=== PATIENT | male | born 1930 | race Caucasian/White ===

== ENCOUNTER 2017-04-18 15:13 | Inpatient (IN) | payer MEDICARE, BC ==
[~2017-04-18 15:13] MED LIST: Ciprofloxacin in D5W 400 MG in Premix Bag 1 BAG IV SCH; Lactated Ringers 1,000 ML IV SCH
[2017-04-18] MEDS: Lactated Ringers 1,000 ML IV SCH (15:56)
[2017-04-18] MEDS: Ciprofloxacin in D5W 400 MG in Premix Bag 1 BAG IV SCH ×6 (16:37→16:41)
[2017-04-18] MEDS ORDERED: Albuterol HFA 18 Gm Inhaler INH PRN (18:19)
[2017-04-18 18:56] LABS: CHLORIDE,CL 105 mmol/L (98-110); SODIUM,NA 137 mmol/L (136-146)
[2017-04-18] MEDS: atorvaSTATin 20 MG Tab PO SCH (20:05)
[2017-04-18] MEDS: Carvedilol 3.125 MG Tab PO SCH (20:18)
[2017-04-18] MEDS: Isosorbide Dinitrate 10 MG Tab PO SCH (20:18)
[2017-04-18] MEDS: SYMBICORT 160-4.5 **OWN MED INH SCH (20:54)
[2017-04-18] MEDS: Ipratropium 12.9 GM Inhaler INH SCH (21:00)
[2017-04-19] MEDS: Ciprofloxacin in D5W 400 MG in Premix Bag 1 BAG IV SCH ×4 (03:37→16:35)
[2017-04-19] MEDS: Albuterol 8 GM Inhaler INH PRN ×3 (04:41→18:04)
[2017-04-19] MEDS: Isosorbide Dinitrate 10 MG Tab PO SCH ×4 (06:09→20:41)
[2017-04-19] MEDS: Carvedilol 3.125 MG Tab PO SCH ×4 (06:10→20:40)
[2017-04-19] MEDS ORDERED: Omeprazole 20 MG Cap.CR PO ONE (06:15)
[2017-04-19] MEDS ORDERED: Furosemide 40 MG Tab PO ONE (06:15)
[2017-04-19] MEDS: Ipratropium 12.9 GM Inhaler INH SCH ×3 (06:34→21:06)
[2017-04-19] MEDS ORDERED: Furosemide 40 MG Tab PO SCH (09:00)
[2017-04-19] MEDS ORDERED: Omeprazole 20 MG Cap.CR PO SCH (09:00)
[2017-04-19] MEDS: SYMBICORT 160-4.5 **OWN MED INH SCH ×2 (09:30→21:08)
--- NOTE | 2017-04-19 10:48 | PCM.PREANE ---
Preanesthetic Assessment - Anesthesia/Transfusion/Family Hx Anesthesia History: Prior Anesthesia Without Reaction Family History of Anesthesia Reaction: No Transfusion History: No Prior Transfusion(s) - Review of Systems General: No Symptoms Pulmonary: No Symptoms Cardiovascular: No Symptoms Gastrointestinal: No symptoms Neurological: No Symptoms Other: Reports: None - Physical Assessment NPO Status Date: 04/18/17 Pulse: 75 O2 Sat by Pulse Oximetry: 94 Respiratory Rate: 16 Blood Pressure: 163/83 Vital Signs: Last Vital Signs Temp 35.8 C 04/19/17 08:00 Pulse 70 04/19/17 08:00 Resp 16 04/19/17 08:00 BP 133/63 04/19/17 08:00 Pulse Ox 94 L 04/19/17 08:00 Height: 1.77 m Weight: 90.9 kg ASA Class: 3 Mental Status: Alert & Oriented x3 Airway Class: Mallampati = 2 Dentition: Reports: Edentulous ROM/Head Extension: Full Lungs: Clear to auscultation, Normal respiratory effort Cardiovascular: Regular Rate, Regular Rhythm - Lab Values: Laboratory Last Values WBC 6.59 K/uL (4.0-11.0) 04/18/17 18:30 RBC 3.72 M/uL (4.50-5.90) L 04/18/17 18:30 Hgb 11.7 g/dL (13.0-17.0) L 04/18/17 18:30 Hct 35.6 % (38.0-50.0) L 04/18/17 18:30 MCV 95.7 fL (80.0-98.0) 04/18/17 18:30 MCH 31.5 pg (27.0-32.0) 04/18/17 18:30 MCHC 32.9 g/dL (31.0-37.0) 04/18/17 18:30 RDW Std Deviation 51.1 fl (28.0-62.0) 04/18/17 18:30 RDW Coeff of [place] 15 % (11.0-15.0) 04/18/17 18:30 Plt Count 132 K/uL (150-400) L 04/18/17 18:30 MPV 10.20 fL (7.40-12.00) 04/18/17 18:30 Neut % (Auto) 65.9 % (48.0-80.0) 04/18/17 18:30 Lymph % (Auto) 20.6 % (16.0-40.0) 04/18/17 18:30 [place] % (Auto) 10.2 % (0.0-15.0) 04/18/17 18:30 Eos % (Auto) 3.3 % (0.0-7.0) 04/18/17 18:30 Baso % (Auto) 0.0 % (0.0-1.5) 04/18/17 18:30 Neut # (Auto) 4.3 K/uL (1.4-5.7) 04/18/17 18:30 Lymph # (Auto) 1.4 K/uL (0.6-2.4) 04/18/17 18:30 [place] # (Auto) 0.7 K/uL (0.0-0.8) 04/18/17 18:30 Eos # (Auto) 0.2 K/uL (0.0-0.7) 04/18/17 18:30 Baso # (Auto) 0.0 K/uL (0.0-0.1) 04/18/17 18:30 Nucleated RBC % 0.0 /100WBC 04/18/17 18:30 Nucleated RBCs # 0 K/uL 04/18/17 18:30 Sodium 137 mmol/L (136-146) 04/18/17 18:30 Potassium 4.4 mmol/L (3.5-5.1) 04/18/17 18:30 Chloride 105 mmol/L (98-110) 04/18/17 18:30 Carbon Dioxide 26 mmol/L (21-31) 04/18/17 18:30 BUN 22 mg/dL (6.0-23.0) 04/18/17 18:30 Creatinine 0.9 mg/dL (0.6-1.5) 04/18/17 18:30 Est Cr Clr Drug Dosing 56.55 mL/min 04/18/17 18:30 Estimated GFR (MDRD) > 60.0 ml/min 04/18/17 18:30 Glucose 176 mg/dL (60-110) H 04/18/17 18:30 Calcium 8.4 mg/dL (8.8-10.8) L 04/18/17 18:30 - Allergies Allergies/Adverse Reactions: Allergies Allergy/AdvReac Type Severity Reaction Status Date / Time Penicillins Allergy Unknown Other Verified 10/09/15 15:23 ramipril Allergy Unknown Other Verified 10/09/15 15:23 - Acknowledgements Anesthesia Type Planned: Spinal Pt an Appropriate Candidate for the Planned Anesthesia: Yes Alternatives and Risks of Anesthesia Discussed w Pt/Guardian: Yes Pt/Guardian Understands and Agrees with Anesthesia Plan: Yes Additional Comments: PMH: CAD with stents 4 yr ago, stopped plavix x 1 month, last dose of aspirin was yesterday, HTN, HLD, COPD, GERD on prilosec, BPH, macular degeneration PreAnesthesia Questionnaire Other HEENT History: wears glasses, has top and bottom dentures Cardiovascular History: Reports: High Cholesterol, Hypertension, [place] Respiratory History: Reports: Asthma, COPD, Sleep Apnea Gastrointestinal History: Reports: None, Other (See Below) Other Gastrointestinal History: phimosis; nocturia; urinary retention Genitourinary History: Reports: BPH Musculoskeletal History: Reports: Arthritis Neurological History: Reports: None Psychiatric History: Reports: None Endocrine/Metabolic History: Reports: None Hematologic History: Reports: None Immunologic History: Reports: None Oncologic (Cancer) History: Reports: None Dermatologic History: Reports: None - Infectious Disease History Infectious Disease History: Reports: Chicken Pox, Influenza, Mumps - Past Surgical History HEENT Surgical History: Reports: Eye Surgery Cardiovascular Surgical History: Reports: Coronary Artery Stent Respiratory Surgical History: Reports: None GI Surgical History: Reports: Appendectomy, Hernia Repair/Other - SUBSTANCE USE Smoking Status *Q: Former Smoker Tobacco Use Within Last Twelve Months: Cigarettes Second Hand Smoke Exposure: No Recreational Drug Use History: No - HOME MEDS Home Medications: Home Meds Aspirin [[place] Aspirin] 81 mg PO DAILY 10/13/15 [History] Carvedilol 3.125 mg PO BID 10/13/15 [History] Furosemide 40 mg PO DAILY 10/13/15 [History] Isosorbide Dinitrate 10 mg PO BID 10/13/15 [History] Omeprazole [Prilosec] 20 mg PO DAILY 10/13/15 [History] atorvaSTATin Calcium [Atorvastatin Calcium] 20 mg PO BEDTIME 10/13/15 [History] predniSONE [Prednisone] 2.5 mg PO DAILY 10/13/15 [History] Albuterol [Ventolin HFA] 2 puff INH BID PRN 04/18/17 [History] Budesonide/Formoterol Fumarate [Symbicort 160-4.5 Mcg Inhaler] 2 puff INH BID [History] Ipratropium [Atrovent HFA] 2 puff INH TID 04/18/17 [History] Terazosin [Hytrin] 2 mg PO BEDTIME 04/18/17 [History] Vit A/Vit C/Vit E/Zinc/Copper [Preservision] 1 tab PO BID 04/18/17 [History] - CURRENT (IN HOUSE) MEDS Current Meds: Current Medications Albuterol (Ventolin Hfa) 0 gm INH BID PRN PRN Reason: Shortness of Breath Last Admin: 04/19/17 04:41 Dose: 2 inhalation Atorvastatin Calcium (Lipitor) 20 mg PO BEDTIME [facility] Last Admin: 04/18/17 20:05 Dose: 20 mg Carvedilol (Coreg) 3.125 mg PO BID [facility] Last Admin: 04/19/17 09:34 Dose: Not Given Furosemide (Lasix) 40 mg PO DAILY [facility] Hydrocortisone Sodium Succinate (Solu-Cortef) 100 mg IVPUSH ONETIME ONE Stop: 04/19/17 12:01 Lactated Ringer's (Ringers, Lactated) 1,000 mls @ 50 mls/hr IV ASDIRECTED [facility] Last Admin: 04/18/17 15:56 Dose: 50 mls/hr Ciprofloxacin/Dextrose 400 mg/ (Premix) 200 mls @ 200 mls/hr IV Q12H [facility] Last Admin: 04/19/17 03:37 Dose: 200 mls/hr Tobramycin 120 mg/ Sodium (Chloride) 103 mls @ 100 mls/hr IV Q12H [facility] Last Admin: 04/19/17 04:42 Dose: 100 mls/hr Ipratropium [place] (Atrovent Hfa) 0 gm INH TID [facility] Last Admin: 04/19/17 06:34 Dose: 2 inhalation Isosorbide Dinitrate (Isordil) 10 mg PO BID [facility] Last Admin: 04/19/17 09:34 Dose: Not Given Omeprazole (Omeprazole) 20 mg PO ACBREAKFAST [facility] Symbicort 160-4.5 (Own Med) 0 each INH BID [facility] Last Admin: 04/19/17 09:30 Dose: 1 each Discontinued Medications Albuterol (Ventolin Hfa) 0 gm INH BID PRN PRN Reason: Shortness of Breath Furosemide (Lasix) 40 mg PO DAILY [facility] Furosemide (Lasix) 40 mg PO ONETIME ONE Stop: 04/19/17 06:16 Last Admin: 04/19/17 06:07 Dose: 40 mg Lactated Ringer's (Ringers, Lactated) 1,000 mls @ 50 mls/hr IV ASDIRECTED [facility] Lactated Ringer's (Ringers, Lactated) 1,000 mls @ 50 mls/hr IV ASDIRECTED [facility] Ciprofloxacin/Dextrose 400 mg/ (Premix) 200 mls @ 200 mls/hr IV Q12H [facility] Tobramycin 120 mg/ Sodium (Chloride) 103 mls @ 100 mls/hr IV Q12HR [facility] Ciprofloxacin/Dextrose 400 mg/ (Premix) 200 mls @ 200 mls/hr IV Q12H [facility] Tobramycin 120 mg/ Sodium (Chloride) 103 mls @ 100 mls/hr IV Q12HR [facility] Ciprofloxacin/Dextrose 400 mg/ (Premix) 200 mls @ 200 mls/hr IV Q12H [facility] Tobramycin 120 mg/ Sodium (Chloride) 103 mls @ 100 mls/hr IV Q12HR [facility] Tobramycin 120 mg/ Sodium (Chloride) 103 mls @ 100 mls/hr IV Q12HR [facility] Last Admin: 04/18/17 16:38 Dose: Not Given Ciprofloxacin/Dextrose 400 mg/ (Premix) 200 mls @ 200 mls/hr IV Q12H [facility] Last Admin: 04/18/17 16:38 Dose: Not Given Tobramycin 120 mg/ Sodium (Chloride) 103 mls @ 100 mls/hr IV Q12H [facility] Omeprazole (Omeprazole) 20 mg PO DAILY [facility] Omeprazole (Omeprazole) 20 mg PO ONETIME ONE Stop: 04/19/17 06:16 Last Admin: 04/19/17 06:07 Dose: 20 mg
[2017-04-19] MEDS ORDERED: Hydrocortisone Sodium Succinate 100 MG/2 ML SDV IVPUSH ONE (12:00)
[2017-04-19] MEDS ORDERED: fentaNYL 100 MCG/2 ML SDV ONE (12:59)
[2017-04-19] MEDS ORDERED: Propofol 200 MG/20 ML SDV ONE (12:59)
[2017-04-19] MEDS ORDERED: Lidocaine 2% 5 ML SDV ONE (12:59)
[2017-04-19] MEDS ORDERED: ePHEDrine 50 MG/ML SDV ONE (13:00)
--- NOTE | 2017-04-19 16:20 | PCM.POSTAN ---
POST ANESTHESIA ASSESSMENT - MENTAL STATUS Mental Status: alert, oriented - VITAL SIGNS Pulse Rate: 67 SaO2: 94 Resp Rate: 11 Blood Pressure: 190/99 (similar to preop of 206/99) - RESPIRATORY Respiratory Status: respiratory rate WNL, airway patent, O2 saturation stable - CARDIOVASCULAR CV Status: pulse rate WNL, blood pressure stable - GASTROINTESTINAL GI Status: no symptoms - PAIN Pain Score: 0 (spinal still intact) - POST OP HYDRATION Hydration Status: adequate & stable - OBSERVATIONS Free Text/Narrative:: Pt stable with no complaints. BP is high, but remains consistent with pt's preop BP and is normal for this pt.
[2017-04-19] MEDS: Lactated Ringers 1,000 ML IV SCH (16:39)
[2017-04-19] MEDS: atorvaSTATin 20 MG Tab PO SCH (21:23)
--- NOTE | 2017-04-19 22:32 | PCM48HPAN ---
Post Anesthesia Note - EVALUATION WITHIN 48HRS OF ANESTHETIC Vital Signs in Normal Range: Yes Patient Participated in Evaluation: Yes Respiratory Function Stable: Yes Airway Patent: Yes Cardiovascular Function Stable: Yes Hydration Status Stable: Yes Pain Control Satisfactory: Yes Nausea and Vomiting Control Satisfactory: Yes Mental Status Recovered: Yes - COMMENTS/OBSERVATIONS Free Text/Narrative:: No apparent anesthesia complications.
--- NOTE | 2017-04-19 22:52 | OR ---
SURGEON: Chasity Gasca M.D. DATE OF PROCEDURE: 04/19/2017 PREOPERATIVE DIAGNOSIS: Urinary retention. Suspected prostate malignancy. POSTOPERATIVE DIAGNOSIS: Urinary retention. Suspected prostate malignancy. OPERATION: Transurethral resection of prostate. DESCRIPTION OF PROCEDURE: The patient was given spinal anesthesia, placed in the lithotomy position, prepped and draped in sterile drapes. The 26-Yi resectoscope was introduced in the bladder without difficulty. The prostate was resected in the usual manner starting with the floor and going on laterally and anteriorly. At the end of the resection, all prostatic chips were removed. Both the ureteral orifices were intact. External sphincter was intact. A 22 3-way Baker catheter with 60 mL in the balloon was left in the bladder, connected to TUR drip. The patient tolerated the procedure well and was moved to recovery room in good condition. Estimated blood loss about 200 mL. MYA / EVON /[id number]
[2017-04-20] MEDS: Ciprofloxacin in D5W 400 MG in Premix Bag 1 BAG IV SCH ×4 (05:12→16:46)
[2017-04-20] MEDS: Ipratropium 12.9 GM Inhaler INH SCH ×3 (07:07→21:05)
[2017-04-20] MEDS: Omeprazole 20 MG Cap.CR PO SCH (08:08)
[2017-04-20] MEDS: SYMBICORT 160-4.5 **OWN MED INH SCH ×2 (09:15→21:03)
[2017-04-20] MEDS: Isosorbide Dinitrate 10 MG Tab PO SCH ×2 (10:26→21:04)
[2017-04-20] MEDS: Carvedilol 3.125 MG Tab PO SCH ×2 (10:26→21:03)
[2017-04-20] MEDS: Furosemide 40 MG Tab PO SCH (10:27)
[2017-04-20] MEDS: Albuterol 8 GM Inhaler INH PRN (14:18)
[2017-04-20] MEDS: atorvaSTATin 20 MG Tab PO SCH (21:03)
[2017-04-21] MEDS: Ciprofloxacin in D5W 400 MG in Premix Bag 1 BAG IV SCH ×2 (04:24)
[2017-04-21] MEDS: Ipratropium 12.9 GM Inhaler INH SCH ×2 (07:06→13:05)
[2017-04-21] MEDS: Carvedilol 3.125 MG Tab PO SCH (08:25)
[2017-04-21] MEDS: Isosorbide Dinitrate 10 MG Tab PO SCH (08:26)
[2017-04-21] MEDS: Furosemide 40 MG Tab PO SCH (08:26)
[2017-04-21] MEDS: Omeprazole 20 MG Cap.CR PO SCH (08:27)
[2017-04-21] MEDS: SYMBICORT 160-4.5 **OWN MED INH SCH (09:23)
[2017-04-21 12:53] VITALS: BP 103/58
--- NOTE | 2017-05-03 12:21 | PCM.SN ---
- Free Text/Narrative Note: Post up day one he is doing well
--- NOTE | 2017-05-03 12:24 | PCM.DCSUM1 ---
Discharge Summary - Discharge Data Discharge Date: 04/18/17 Discharge Disposition: Home, Self-Care 01 Condition: Good - Patient Instructions Diet: Regular Diet as Tolerated Activity: As Tolerated Driving: Do Not Drive Showering/Bathing: May Shower Notify Provider of: Fever, Increased Pain, Drainage - Discharge Plan Home Medications: Home Meds Aspirin [[place] Aspirin] 81 mg PO DAILY 10/13/15 [History] Carvedilol 3.125 mg PO BID 10/13/15 [History] Furosemide 40 mg PO DAILY 10/13/15 [History] Isosorbide Dinitrate 10 mg PO BID 10/13/15 [History] Omeprazole [Prilosec] 20 mg PO DAILY 10/13/15 [History] atorvaSTATin Calcium [Atorvastatin Calcium] 20 mg PO BEDTIME 10/13/15 [History] predniSONE [Prednisone] 2.5 mg PO DAILY 10/13/15 [History] Albuterol [Ventolin HFA] 2 puff INH BID PRN 04/18/17 [History] Budesonide/Formoterol Fumarate [Symbicort 160-4.5 Mcg Inhaler] 2 puff INH BID [History] Ipratropium [Atrovent HFA] 2 puff INH TID 04/18/17 [History] Terazosin [Hytrin] 2 mg PO BEDTIME 04/18/17 [History] Vit A/Vit C/Vit E/Zinc/Copper [Preservision] 1 tab PO BID 04/18/17 [History] Patient Handouts: Transurethral Resection of the Prostate, Care After, Baker Catheter Care, Adult, [id number] Referrals: Mauricio Valle MD [Physician] - 07/28/17 11:30 am Chasity Gasca MD [Physician] - 04/26/17 4:30 pm - Patient Data Vitals - Most Recent: Last Vital Signs Temp 98.3 F 04/21/17 12:00 Pulse 71 04/21/17 12:00 Resp 17 04/21/17 12:00 BP 103/58 L 04/21/17 12:00 Pulse Ox 95 04/21/17 12:00 Weight - Most Recent: 200 lb 6.403 oz Med Orders - Current: Current Medications Discontinued Medications Albuterol (Ventolin Hfa) 0 gm INH BID PRN PRN Reason: Shortness of Breath Albuterol (Ventolin Hfa) 0 gm INH BID PRN PRN Reason: Shortness of Breath Last Admin: 04/20/17 14:18 Dose: 2 inhalation Atorvastatin Calcium (Lipitor) 20 mg PO BEDTIME [facility] Last Admin: 04/20/17 21:03 Dose: 20 mg Carvedilol (Coreg) 3.125 mg PO BID [facility] Last Admin: 04/21/17 08:25 Dose: 3.125 mg Ephedrine Sulfate (Ephedrine Sulfate) Confirm Administered Dose 50 mg .ROUTE .STK-MED ONE Stop: 04/19/17 13:01 Fentanyl (Sublimaze) Confirm Administered Dose 100 mcg .ROUTE .STK-MED ONE Stop: 04/19/17 13:00 Furosemide (Lasix) 40 mg PO DAILY [facility] Furosemide (Lasix) 40 mg PO ONETIME ONE Stop: 04/19/17 06:16 Last Admin: 04/19/17 06:07 Dose: 40 mg Furosemide (Lasix) 40 mg PO DAILY [facility] Last Admin: 04/21/17 08:26 Dose: 40 mg Hydrocortisone Sodium Succinate (Solu-Cortef) 100 mg IVPUSH ONETIME ONE Stop: 04/19/17 12:01 Last Admin: 04/19/17 15:22 Dose: Not Given Lactated Ringer's (Ringers, Lactated) 1,000 mls @ 50 mls/hr IV ASDIRECTED [facility] Lactated Ringer's (Ringers, Lactated) 1,000 mls @ 50 mls/hr IV ASDIRECTED [facility] Ciprofloxacin/Dextrose 400 mg/ (Premix) 200 mls @ 200 mls/hr IV Q12H [facility] Tobramycin 120 mg/ Sodium (Chloride) 103 mls @ 100 mls/hr IV Q12HR [facility] Ciprofloxacin/Dextrose 400 mg/ (Premix) 200 mls @ 200 mls/hr IV Q12H [facility] Lactated Ringer's (Ringers, Lactated) 1,000 mls @ 50 mls/hr IV ASDIRECTED [facility] Last Admin: 04/19/17 16:39 Dose: 50 mls/hr Tobramycin 120 mg/ Sodium (Chloride) 103 mls @ 100 mls/hr IV Q12HR [facility] Ciprofloxacin/Dextrose 400 mg/ (Premix) 200 mls @ 200 mls/hr IV Q12H [facility] Tobramycin 120 mg/ Sodium (Chloride) 103 mls @ 100 mls/hr IV Q12HR [facility] Tobramycin 120 mg/ Sodium (Chloride) 103 mls @ 100 mls/hr IV Q12HR [facility] Last Admin: 04/18/17 16:38 Dose: Not Given Ciprofloxacin/Dextrose 400 mg/ (Premix) 200 mls @ 200 mls/hr IV Q12H [facility] Last Admin: 04/18/17 16:38 Dose: Not Given Ciprofloxacin/Dextrose 400 mg/ (Premix) 200 mls @ 200 mls/hr IV Q12H [facility] Last Admin: 04/21/17 04:24 Dose: 200 mls/hr Tobramycin 120 mg/ Sodium (Chloride) 103 mls @ 100 mls/hr IV Q12H [facility] Tobramycin 120 mg/ Sodium (Chloride) 103 mls @ 100 mls/hr IV Q12H [facility] Last Admin: 04/21/17 05:27 Dose: 100 mls/hr Ipratropium [place] (Atrovent Hfa) 0 gm INH TID [facility] Last Admin: 04/21/17 13:05 Dose: 2 inhalation Isosorbide Dinitrate (Isordil) 10 mg PO BID [facility] Last Admin: 04/21/17 08:26 Dose: 10 mg Lidocaine (Xylocaine-Mpf 2%) Confirm Administered Dose 5 ml .ROUTE .STK-MED ONE Stop: 04/19/17 13:00 Omeprazole (Omeprazole) 20 mg PO DAILY [facility] Omeprazole (Omeprazole) 20 mg PO ONETIME ONE Stop: 04/19/17 06:16 Last Admin: 04/19/17 06:07 Dose: 20 mg Omeprazole (Omeprazole) 20 mg PO ACBREAKFAST [facility] Last Admin: 04/21/17 08:27 Dose: 20 mg Symbicort 160-4.5 (Own Med) 0 each INH BID [facility] Last Admin: 04/21/17 09:23 Dose: 1 each Propofol (Diprivan 20 Ml) Confirm Administered Dose 400 mg .ROUTE .STK-MED ONE Stop: 04/19/17 13:00
--- NOTE | 2017-05-04 09:21 | DISCH ---
DATE OF DISCHARGE: 04/21/2017 PRIMARY CARE PHYSICIAN: Swathi Hernandez [facility]SE: Mr. Ochoa is 87 years old. He was in urinary retention, seen in the office, and was admitted to the hospital for a TURP, which he had done on 04/19/2017. Postoperatively, he did well. However, when the catheter was taken out on the second postoperative day, he was unable to void. So, the catheter was put back in and he was discharged. CONDITION ON DISCHARGE: At the time of discharge, he is stable. He is doing well otherwise. His vitals remained stable. DISCHARGE FOLLOWUP: He will be seen in the office in followup. MYA BARNARD /[id number]
== END 2017-04-21 15:07 | disposition home or self-care (01) | DRG 714 ==
LOC: MW.SDS 15:13 → MW.ICU 15:14 → MW.SDS 16:16
PROVIDERS: ADMIT Urology; ATTEND Urology
PROC: 0VT08ZZ Resection of Prostate, Via Natural or Artificial Opening Endoscopic (ICD-10-PCS; principal; 2017-04-18)
DX: N40.1 Benign prostatic hyperplasia with lower urinary tract symptoms (principal); N13.8 Other obstructive and reflux uropathy; I25.10 Atherosclerotic heart disease of native coronary artery without angina pectoris; I10 Essential (primary) hypertension; E78.00 Pure hypercholesterolemia, unspecified; R35.1 Nocturia; N47.1 Phimosis; R33.9 Retention of urine, unspecified; I25.2 Old myocardial infarction; Z88.0 Allergy status to penicillin; Z88.8 Allergy status to other drugs, medicaments and biological substances; Z79.899 Other long term (current) drug therapy
CPT/HCPCS: 36415; J7120; 00914; 51703; 80048; 85025; 88300; 88305; 94640; A9270-GY; J0744; J2704; J3010; J3260; J7030; J7620-GY